=== PATIENT | male | born 1995 | race Caucasian/White ===

== ENCOUNTER 2021-08-11 17:50 | Emergency (ER) | payer MEDICAID ==
--- NOTE | 2021-08-11 18:12 | EDM.PDOC ---
ED HPI GENERAL MEDICAL PROBLEM - General Chief Complaint: Drug or Alcohol Abuse Stated Complaint: OVER DOSE Time Seen by Provider: 08/11/21 18:10 Source of Information: Reports: Patient History Limitations: Reports: No Limitations - History of Present Illness INITIAL COMMENTS - FREE TEXT/NARRATIVE: 25-year-old male who was unconscious and bathroom with a needle in his right arm . Apparently, the patient had went to the bathroom between 4 and 5 PM a and injected on 09/23-09/25 of a gram of heroin IV and he does not really remember anything after that until there were people standing around him and stimulating him trying to get him to wake up. 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 There was no medications given to him by the staff there and no Narcan had been given but he did respond and awakened after laceration and became oriented and ambulatory and he presents here via private vehicle other staff from his job. The patient tells me that he feels basically "back to normal self". He denies any pain. He denies any shortness of breath. He does admit that he used IV heroin one other time today and apparently there were no problems during that episode of heroin use. He reports he was using the drugs recreationally and has been doing this for the past 3 weeks. He characterizes this as a relapse as he has been using heroin off and on since he was 17 years of age. No nausea or vomiting. No fevers or chills. No sore throat. No cough. No chest pain or abdominal pain. There are no other associated signs or symptoms. There are no other modifying factors. 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.) Right Wrist Pain Score (Numeric/FACES): 1 - Related Data Allergies Allergy/AdvReac Type Severity Reaction Status Date / Time No Known Allergies Allergy Verified 08/11/21 18:06 Home Meds: Home Meds Naloxone [Narcan] 0.4 mg IJ ASDIRECTED #1 ml 08/11/21 [Rx] Past Medical History Psychiatric History: Reports: ADHD, Addiction - Past Surgical History HEENT Surgical History: Reports: Other (See Below) Other HEENT Surgeries/Procedures: Jaw surgery, wisdom teeth extraction Musculoskeletal Surgical History: Reports: Other (See Below) Other Musculoskeletal Surgeries/Procedures:: "Finger reconstruction." Social & Family History - Tobacco Use Tobacco Use Status *Q: Current Every Day Tobacco User Years of Tobacco use: 15 Packs/Tins Daily: 1 - Caffeine Use Caffeine Use: Reports: Energy Drinks, Soda - Alcohol Use Alcohol Use History: Yes Alcohol Use Frequency: Rarely - Recreational Drug Use Recreational Drug Use: Yes Drug Use in Last 12 Months: Yes Recreational Drug Type: Reports: Heroin, Marijuana/Hashish Recreational Drug Use Frequency: Daily - Living Situation & Occupation 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) ED ROS GENERAL - Review of Systems Review Of Systems: See Below Constitutional: Denies: Fever, Chills HEENT: Denies: Throat Pain, Throat Swelling Respiratory: Denies: Shortness of Breath, Cough Cardiovascular: Denies: Chest Pain, Dyspnea on Exertion, Palpitations GI/Abdominal: Denies: Abdominal Pain, Nausea, Vomiting : Denies: Dysuria, Flank Pain Musculoskeletal: Denies: Arm Pain, Back Pain, Leg Pain Skin: Denies: Diaphoresis, Rash Neurological: Reports: Other (Transient alteration in level of responsiveness that has resolved prior to arrival here.) Psychiatric: Denies: Suicidal Ideation Hematologic/Lymphatic: Denies: Easy Bleeding, Easy Bruising - Physical Exam Exam: See Below Exam Limited By: No Limitations General Appearance: Alert, WD/WN, No Apparent Distress Eye Exam: Bilateral Eye: EOMI, Normal Inspection (Sclera are anicteric), PERRL Ears: Normal External Exam, Hearing Grossly Normal Nose: Normal Inspection, Normal Mucosa, No Blood Throat/Mouth: Normal Inspection, Normal Lips, Normal Oropharynx, Normal Voice, No Airway Compromise Head Exam: Atraumatic, Normocephalic Neck: Normal Inspection, Supple, Non-Tender, Full Range of Motion Respiratory/Chest: No Respiratory Distress, Lungs Clear, Normal Breath Sounds, No Accessory Muscle Use, Chest Non-Tender Cardiovascular: Normal Peripheral Pulses, No Murmur, Tachycardia GI/Abdominal: Normal Bowel Sounds, Soft, Non-Tender, No Mass Neuro Exam (Abbreviated): Alert, Oriented, CN II-XII Intact, Normal Cognition, No Motor/Sensory Deficits Back Exam: Normal Inspection Extremities: Normal Range of Motion, Non-Tender, No Pedal Edema, Normal Capillary Refill Psychiatric: Normal Affect Skin Exam: Warm, Dry, Normal Color, Other ("Track marcelo" in antecubital fossa bilaterally.) Course - Vital Signs Last Recorded V/S: Last Vital Signs Temp 37.3 C 08/11/21 18:51 Pulse 106 H 08/11/21 18:51 Resp 18 08/11/21 18:51 BP 121/76 08/11/21 18:51 Pulse Ox 98 08/11/21 18:51 - Re-Assessments/Exams Free Text/Narrative Re-Assessment/Exam: 08/11/21 18:23: Young adult male with IV heroin use. He was found unconscious and nonresponsive in a bathroom at his work. He apparently had used heroin one other time earlier in the day and at about 4 to 5 PM, he went into the bathroom and use about 1/8-1/10 mg of heroin IV and he doesn't really remember much of this. The patient was not given any Narcan but awakened to stimulation and has been awake, alert and appropriate since then. The patient reports she feels improved. He has had some Narcan prescribed him the past but has never use it on himself but has used it on other people. The patient is well beyond the half- life of heroin which is all that he reports that he used. He is oriented 4. The re was no intent for self-harm. He is slightly tachycardic his exam is otherwise reassuring. I feel that he is stable for discharge. I will give him a prescription for Narcan. Departure - Departure Time of Disposition: 18:33 Disposition: Home, Self-Care 01 Condition: Good (Stable) Clinical Impression: Transient alteration of awareness Heroin overdose Qualifiers: Encounter type: initial encounter Injury intent: accidental or unintentional Qualified Code(s): T40.1X1A - Poisoning by heroin, accidental (unintentional), initial encounter - Discharge Information Prescriptions: Naloxone [Narcan] 0.4 mg IJ ASDIRECTED #1 ml Instructions: Chemical Dependency Referrals: PCP,None [Primary Care Provider] - Forms: ED Department Discharge Additional Instructions: Your use of her one today resulted in you having problems with breathing and potentially could have resulted in your was of depression of your respirations. Your heart rate is a little fast now but her exam is otherwise reassuringly normal. Have given you a prescription of Narcan which is a reversal agent for opioids including heroin. I strongly advise you to seek help to stop using heroin or any other illicit drugs. Increase your fluid intake. Back to the emergency department for trouble breathing, fever, severe weakness or any other concerning signs or symptoms. Sepsis Event Note (ED) - Evaluation Sepsis Screening Result: No Definite Risk - Focused Exam Vital Signs: Vital Signs Temp Pulse Resp BP BP Pulse Ox 08/11/21 18:51 37.3 C 106 H 18 121/76 98 08/11/21 17:50 37.2 C 115 H 20 148/84 H 99
== END 2021-08-11 18:52 | disposition home or self-care (01) ==
LOC: FB.ED 17:50
DX: T40.1X1A Poisoning by heroin, accidental (unintentional), initial encounter (principal); R40.4 Transient alteration of awareness; Z72.0 Tobacco use
CPT/HCPCS: 99284